=== PATIENT | female | born 1960 | race Caucasian/White ===

== ENCOUNTER → 2019-08-24 | Outpatient (BNVA) | payer BC, SELFPAY | PROVIDERS: Family Provider Family Medicine; Visit Provider Nurse Practitioner Family | DX: M79.672 Pain in left foot (principal) | CPT/HCPCS: 73630 ==

== ENCOUNTER 2020-02-19 09:31 | Outpatient (CLI) | payer BC, SELFPAY ==
--- NOTE | 2020-02-19 09:30 | MM_ITS ---
WS: [id number] SCREENING DIGITAL MAMMOGRAM WITH CAD HISTORY: screening COMPARISON: 09/12/2018, 08/01/2017 and 06/07/2016 Bilateral CC and MLO views submitted. Computer aided detection analyzed. Breast composition: There are scattered areas of fibroglandular density. No suspicious masses, microc alcifications or architectural distortion. MM/[place] [id number] IMPRESSION: BI-RADS: 1-Negative FOLLOW UP: 1 Year Follow-up
== END 2020-02-19 09:32 | disposition home or self-care (01) ==
LOC: RADSHAW 09:31
PROVIDERS: PCP Nurse Practitioner Family; Visit Provider Nurse Practitioner Family
DX: Z12.31 Encounter for screening mammogram for malignant neoplasm of breast (principal)
CPT/HCPCS: 77067

== ENCOUNTER 2020-11-03 10:47 | Outpatient (CLI) | payer BC, SELFPAY ==
--- NOTE | 2020-11-03 11:00 | USCV_ITS ---
Mandy Marc Age: 60 Gender: F : 1960 Exam Date: 11/03/2020 11:05 Ordering Phys: Marci Jackson NP Technologist: Manju Horta [place]am [place] [facility] [place]: PAIN IN RT LEG AROUND POP FOSSA HISTORY: Pt hurt leg in Mar 2020. Still having pain. PROCEDURES: Venous duplex imaging was performed in only the right lower extremity. The following venous structures were evaluated: common femoral vein, profunda vein, proximal portion of the greater saphenous vein, superficial femoral vein, and the popliteal vein. In addition, the posterior tibial and peroneal trunk were evaluated. Serial compression, augmentation maneuvers, and spectral Doppler flow evaluation were performed. FINDINGS: No DVT seen in any vessel examined. There is a Miller's cyst with debris present. CONCLUSIONS No evidence of right lower extremity DVT. Popliteal cyst measuring 2.8 x 0,9cm with internal debris Misha Lundberg MD (Electronically Signed) Final Date: 03 Nov 2020 18:06 S
== END 2020-11-03 10:48 | disposition home or self-care (01) ==
LOC: RAD 10:50
PROVIDERS: PCP Nurse Practitioner Family; Visit Provider Nurse Practitioner Family
DX: M79.89 Other specified soft tissue disorders (principal); M79.604 Pain in right leg; M71.21 Synovial cyst of popliteal space [Baker], right knee
CPT/HCPCS: 93971

== ENCOUNTER → 2020-11-21 13:40 | Outpatient (BNVA) | payer BC, SELFPAY | PROVIDERS: PCP Nurse Practitioner Family; Referring Provider Nurse Practitioner Family; Visit Provider Orthopaedic Surgery | DX: M71.20 Synovial cyst of popliteal space [Baker], unspecified knee (principal); M25.561 Pain in right knee | CPT/HCPCS: 73560; 73565 ==

== ENCOUNTER 2021-10-06 15:21 | Outpatient (CLI) | payer BC, SELFPAY ==
--- NOTE | 2021-10-06 15:35 | MM_ITS ---
WS: [id number] BILATERAL SCREENING 3D TOMOSYNTHESIS DIGITAL MAMMOGRAM WITH CAD HISTORY: SCREENING COMPARISON: 02/19/2020 and 09/12/2018 Bilateral CC and MLO views submitted. Computer aided detection analyzed. Breast composition: There are scattered areas of fibroglandular density. No suspicious masses, microc alcifications or architectural distortion. MM/[id number] IMPRESSION: BI-RADS: 1-Negative FOLLOW UP: 1 Year Follow-up
== END 2021-10-06 15:22 | disposition home or self-care (01) ==
LOC: RADSHAW 15:28
PROVIDERS: PCP Nurse Practitioner Family; Visit Provider Nurse Practitioner Family
DX: Z12.31 Encounter for screening mammogram for malignant neoplasm of breast (principal)
CPT/HCPCS: 77063; 77067

== ENCOUNTER → 2022-05-23 09:19 | Outpatient (BNVA) | payer BC, SELFPAY | PROVIDERS: PCP Nurse Practitioner Family; Visit Provider Nurse Practitioner Family | DX: Z00.00 Encounter for general adult medical examination without abnormal findings (principal); Z13.6 Encounter for screening for cardiovascular disorders; Z68.26 Body mass index [BMI] 26.0-26.9, adult; Z72.0 Tobacco use | CPT/HCPCS: 80053; 80061; 84443; 85025 ==

== ENCOUNTER 2022-06-20 09:32 | Outpatient (CLI) | payer BC, SELFPAY ==
--- NOTE | 2022-06-20 09:45 | CT_ITS ---
WS: [id number] LDCT LUNG CANCER SCREENING HISTORY: Z72.0 - Tobacco use TECHNIQUE: Axial imaging performed from the apices to 1 cm below the costophrenic angles. Coronal and sagittal reformats are submitted with axial MIP series. All CT scans at [facility] use at least one of these dose optimization techniques: automated exposure control; mA and/or kV adjustment per patient size (includes targeted exams where dose is matched to clinical indication); or iterativ e reconstruction. DLP: 73.62 mGy.cm DIvol: Mean CTDIvol: 1.60 (mGy) COMPARISON: None available. Diagnostic quality: Satisfactory Lung Nodules: Multiple pulmonary nodules. The largest nodule LEFT lower lobe contains a central calci fication. This nodule measures 11 mm. There are additional bilateral lower lobe pulmonary nodules whi ch are smaller in size. Mild biapical pleural thickening and scarring. Endobronchial nodule distal LE FT main bronchus measures 2.5 mm. Lungs: Chronic emphysema with centrilobular changes in the upper lung lane. Heart: Normal size heart. No effusion. Other findings: Mild atherosclerosis aorta. Mildly prominent thyroid. No adenopathy. No adrenal mass. CT/CT lung screening [id number] IMPRESSION: LUNG-RADS: 4A-Probably Suspicious FOLLOW UP: 3 Month LDCT OTHER FINDINGS (S MODIFIER): None. 3 month low-dose CT follow-up is to reevaluate the endobronchial nodule in the distal LEFT mainstem bronchus and the pulmonary nodules.
== END 2022-06-20 09:33 | disposition home or self-care (01) ==
LOC: RAD 09:32
PROVIDERS: PCP Nurse Practitioner Family; Visit Provider Nurse Practitioner Family
DX: Z12.2 Encounter for screening for malignant neoplasm of respiratory organs (principal); Z72.0 Tobacco use
CPT/HCPCS: 71271

== ENCOUNTER 2022-10-09 13:27 | Outpatient (CLI) | payer BC, SELFPAY ==
--- NOTE | 2022-10-09 13:30 | CT_ITS ---
WS: [email or web address] CT chest w con* [id number] HISTORY: Z72.0 - Tobacco use TECHNIQUE: Axial imaging performed through the thorax. Coronal and sagittal reformats are submitted. All CT scans at [facility] use at least one of these dose optimization techniques: automated exposure control; mA and/or kV adjustment per patient size (includes targeted exams where dose is mat ched to clinical indication); or iterative reconstruction. CONTRAST: Omnipaque 350; 100 mL IV. DLP: 189.68 mGy.cm COMPARISON: 06/20/2022 Lungs and central airway: Chronic emphysema. Single 4 mm nodule along the fissure. No change. Largest nodule LEFT lung is 10 mm with a central calcification in the LEFT lower lobe. There are additional smaller nodules in the LEFT lower lobe which have not changed in size since 06/20/2022. There are at least 3 additional nodules besides the main LEFT lower lobe nodule. The very small endobronchial lesi on in the proximal LEFT mainstem bronchus along the superior wall is stable. Pleura: Normal. No pleural effusion. Heart and pericardium: Normal size heart with no pericardial effusion. Mediastinum and luis eduardo: No mediastinum or hilar adenopathy. Vessels: Mild atherosclerosis aorta. No aneurysm. Normal size pulmonary artery. Normal size pulmonary artery. Chest wall and lower neck: Bilateral thyroid nodules. The largest LEFT lower lobe is 12 mm. Upper abdomen: Small hiatal hernia. No adrenal mass. Osseous structures: No destructive process. CT/CT chest w con* [id number] IMPRESSION: 1. No interval change in the bilateral pulmonary nodules in the LEFT mainstem endobronchial lesion since 06/20/2022. Recommend follow-up chest CT in 6 months with IV contrast. 2. No adenopathy. 3. Bilateral thyroid nodules. Largest 12 mm LEFT lower lobe.
[2022-10-09 13:53] LABS: Blood Urea Nitrogen 11 mg/dL (8-23)
[2022-10-09 13:54] LABS: Glomerular Filtration Rate 72.2 mL/min (90-130)
[2022-10-09] MEDS: iohexol 350 mg/mL 500 mL Btl (per mL) IV (13:59)
== END 2022-10-09 13:28 | disposition home or self-care (01) ==
PROVIDERS: Radiology Diagnostic Radiology; PCP Nurse Practitioner Family; Visit Provider Nurse Practitioner Family
DX: R91.1 Solitary pulmonary nodule (principal); R91.8 Other nonspecific abnormal finding of lung field; Z72.0 Tobacco use
CPT/HCPCS: 71260; 82565; 84520; Q9967

== ENCOUNTER → 2023-05-13 16:40 | Outpatient (BNVA) | payer BC, MEDICARE, SELFPAY | PROVIDERS: PCP Nurse Practitioner Family; Visit Provider Nurse Practitioner Family | DX: E04.1 Nontoxic single thyroid nodule (principal); R91.1 Solitary pulmonary nodule | CPT/HCPCS: 80053; 84439; 84443; 84480 ==

== ENCOUNTER 2023-05-27 12:49 | Outpatient (CLI) | payer BC, MEDICARE, SELFPAY ==
--- NOTE | 2023-05-27 13:01 | CT_ITS ---
WS: [email or web address] CT chest w con* [id number] HISTORY: R91.8 - Other nonspecific abnormal finding of lung field TECHNIQUE: Axial imaging performed through the thorax. Coronal and sagittal reformats are submitted. All CT scans at [facility] use at least one of these dose optimization techniques: automated exposure control; mA and/or kV adjustment per patient size (includes targeted exams where dose is mat ched to clinical indication); or iterative reconstruction. CONTRAST: Omnipaque 350; 100 mL IV. DLP: 256.63 mGy.cm COMPARISON: 10/09/2022, 06/20/2022 Lungs and central airway: Hyperinflated lungs with centrilobular emphysema. Stable bilateral pulmonar y nodules ranging in size from 2mm to 11 mm. The largest nodule in the superior segment LEFT lower lo be. There are several bilateral and predominantly lower lobe pulmonary nodules which are all stable. The previously described small nodule in the LEFT mainstem bronchus is not definitely appreciated on today's examination. Pleura: Normal. No pleural effusion. Heart and pericardium: Normal size heart with no pericardial effusion. Mediastinum and luis eduardo: 9 mm LEFT hilar lymph node has slightly increased in size. Vessels: Mild atherosclerosis aorta. No aneurysm. Normal sized pulmonary artery. Chest wall and lower neck: Bilateral thyroid nodules. Largest nodule 12 mm inferior pole LEFT thyroid . Upper abdomen: Stomach is moderately distended with food products. There is very slight mucosal promi nence which is similar to the prior exam. Gallbladder is negative. No adrenal mass. Visualized liver is negative. Osseous structures: No destructive process. IMPRESSION: 1. Multiple bilateral pulmonary nodules are similar to 06/20/2022 with no increase in size or number. As patient does have a history of melanoma recommend continued surveillance. Follow-up chest CT in 6 months. Nodule should be followed for a total of 2 years to document continued stability. 2. Slight increase in size of a LEFT hilar lymph node but still less than 1 cm in diameter. 3. Chronic emphysema. 4. Bilateral thyroid nodules.
[2023-05-27] MEDS: iohexol 350 mg/mL 500 mL Btl (per mL) IV (13:18)
== END 2023-05-27 12:50 | disposition home or self-care (01) ==
LOC: RAD 12:49
PROVIDERS: PCP Nurse Practitioner Family; Visit Provider Nurse Practitioner Family
DX: R91.8 Other nonspecific abnormal finding of lung field (principal); R91.1 Solitary pulmonary nodule; Z85.820 Personal history of malignant melanoma of skin; J43.9 Emphysema, unspecified; E04.1 Nontoxic single thyroid nodule
CPT/HCPCS: 71260; Q9967

== ENCOUNTER → 2023-11-04 09:00 | Outpatient (BNVA) | payer MEDICARE, SELFPAY | PROVIDERS: PCP Nurse Practitioner Family; Visit Provider Nurse Practitioner Family | DX: R91.8 Other nonspecific abnormal finding of lung field (principal); Z13.6 Encounter for screening for cardiovascular disorders; E04.1 Nontoxic single thyroid nodule; R03.0 Elevated blood-pressure reading, without diagnosis of hypertension | CPT/HCPCS: 80053; 80061; 84443 ==

== ENCOUNTER 2023-12-19 11:00 | Outpatient (CLI) | payer MEDICARE, SELFPAY ==
--- NOTE | 2023-12-19 11:00 | CTR_ITS ---
PROCEDURE INFORMATION: Exam: CT Chest With Contrast; Diagnostic Exam date and time: 12/19/2023 11:17 AM Age: 63 years old Clinical indication: Abnormal findings; Abnormal radiologic exam of lung or chest; Patient HX: Follow up bilat lung nodules, HX of shingles on right side abdomen into back x 3 weeks; Additional info: R91.8 - other nonspecific abnormal finding of lung field TECHNIQUE: Imaging protocol: Diagnostic computed tomography of the chest with contrast. Radiation optimization: All CT scans at this facility use at least one of these dose optimization techniques: automated exposure control; mA and/or kV adjustment per patient size (includes targeted exams where dose is matched to clinical indication); or iterative reconstruction. Contrast material: OMNI 350; Contrast volume: 100 ml; Contrast route: INTRAVENOUS (IV); COMPARISON: CT chest w con* [id number] 05/27/2023 1:12 PM RADIATION DOSE METRICS: Total DLP (mGy-cm): 242.09 FINDINGS: Thyroid: Small 14 mm cyst or nodule in the left thyroid lobe. Consider ultrasound. Lungs: Calcified granuloma at the lateral left mid lung. Stable 10 mm nodule in the lateral left lung base now with a slight surrounding infiltrate. 2 additional left lower lobe pulmonary nodules as well as a right lower lobe pulmonary nodule are all stable. Pleural spaces: Unremarkable. No pneumothorax. No pleural effusion. Heart: Unremarkable. No cardiomegaly. No pericardial effusion. Lymph nodes: Unremarkable. No enlarged lymph nodes. Vasculature: Unremarkable. No aortic aneurysm. Liver: Hepatic steatosis. Bones/joints: Unremarkable. No acute fracture. Soft tissues: Unremarkable. CT/CT chest w con* [id number] IMPRESSION: The bilateral pulmonary nodules are stable although the largest on the left now has a mild surrounding infiltrate or atelectasis. COMMENTS: Consistent with the [employer] [place] [employer]'s Incidental Findings Committee white paper (J Am [employer]iol 2015): In patients aged 35 years and older with an incidental thyroid nodule equal to or greater than 1.[address], MRI or extrathyroidal US, further evaluation with dedicated thyroid US is recommended for patients with normal life expectancy and without comorbidities. For smaller nodules without suspicious features, no further evaluation or follow up is recommended.
[2023-12-19] MEDS: iohexol 350 mg/mL 500 mL Btl (per mL) IV (11:22)
== END 2023-12-19 11:01 | disposition home or self-care (01) ==
PROVIDERS: PCP Nurse Practitioner Family; Visit Provider Nurse Practitioner Family
DX: R91.8 Other nonspecific abnormal finding of lung field (principal)
CPT/HCPCS: 71260; Q9967

== ENCOUNTER → 2024-03-23 08:50 | Outpatient (BNVA) | payer MEDICARE, SELFPAY | PROVIDERS: PCP Nurse Practitioner Family; Visit Provider Family Medicine | DX: R30.0 Dysuria (principal) | CPT/HCPCS: 81003; 87086 ==

== ENCOUNTER → 2024-05-08 14:07 | Outpatient (BNVA) | payer MEDICARE, SELFPAY | PROVIDERS: PCP Nurse Practitioner Family; Visit Provider Nurse Practitioner Family | DX: R10.9 Unspecified abdominal pain (principal) | CPT/HCPCS: 81000 ==

== ENCOUNTER 2024-06-15 12:21 | Outpatient (CLI) | payer MEDICARE, SELFPAY ==
--- NOTE | 2024-06-15 12:30 | CT_ITS ---
WS: [email or web address] CT chest w con* [id number] HISTORY: R91.8 - Other nonspecific abnormal finding of lung field TECHNIQUE: Axial imaging performed through the thorax. Coronal and sagittal reformats are submitted. All CT scans at [facility] use at least one of these dose optimization techniques: automated exposure control; mA and/or kV adjustment per patient size (includes targeted exams where dose is mat ched to clinical indication); or iterative reconstruction. CONTRAST: Omnipaque 350; 100 mL IV. DLP: 231.72 mGy.cm COMPARISON: 12/19/2023, 06/20/2022 Lungs and central airway: Lungs are hyperexpanded. Centrilobular emphysema. Several pulmonary nodules are identified in the LEFT lower lobe. The largest nodule contains a central calcification. Nodule m easures 11 x 14 mm with very minimal change in size since the prior study. There are a few additional nodules which are subcentimeter at the LEFT lung base. Stable 7 mm nodule RIGHT lung base. 3 mm nodu le RIGHT middle lobe. Pleura: Normal. No pleural effusion. Heart and pericardium: Mild cardiomegaly. Mediastinum and luis eduardo: 9 mm LEFT hilar lymph node. No mediastinal or hilar adenopathy. Vessels: Mild atherosclerosis aorta. Normal size pulmonary artery. Chest wall and lower neck: Bilateral thyroid nodules. LEFT thyroid nodule 11 mm. Upper abdomen: Small hiatal hernia. Osseous structures: No destructive process. CT/CT chest w con* [id number] IMPRESSION: 1. Stable pulmonary nodules. No significant increase in size of these nodules since 05/27/2023. Largest nodule 11 x 14 mm with a central calcification LEFT l ower lobe. 2. No mediastinal or hilar adenopathy. 3. Centrilobular emphysema. 4. Bilateral thyroid nodules.
[2024-06-15 12:53] LABS: Blood Urea Nitrogen 8 mg/dL (8-23)
[2024-06-15] MEDS: iohexol 350 mg/mL 500 mL Btl (per mL) IV (12:58)
== END 2024-06-15 12:22 | disposition home or self-care (01) ==
LOC: RAD 12:23
PROVIDERS: PCP Nurse Practitioner Family; Visit Provider Nurse Practitioner Family
DX: R91.8 Other nonspecific abnormal finding of lung field (principal); J43.2 Centrilobular emphysema; E04.2 Nontoxic multinodular goiter; I51.7 Cardiomegaly; K44.9 Diaphragmatic hernia without obstruction or gangrene
CPT/HCPCS: 71260; 82565; 84520

== ENCOUNTER 2024-12-29 05:00 | Outpatient (RCR) | payer MEDICARE, SELFPAY | END 2025-01-28 23:59 | disposition home or self-care (01) | LOC: GPT 05:00 | PROVIDERS: PCP Nurse Practitioner Family; Visit Provider Family Medicine | DX: M25.512 Pain in left shoulder (principal) | CPT/HCPCS: 97110; 97140; 97161 ==

== ENCOUNTER → 2025-01-14 09:46 | Outpatient (BNVA) | payer MEDICARE, SELFPAY | PROVIDERS: PCP Nurse Practitioner Family; Visit Provider Family Medicine | DX: M25.519 Pain in unspecified shoulder (principal) | CPT/HCPCS: 73030 ==

== ENCOUNTER 2025-01-29 05:00 | Outpatient (RCR) | payer MEDICARE, SELFPAY | END 2025-02-28 23:59 | disposition home or self-care (01) | LOC: GPT 05:00 | PROVIDERS: PCP Nurse Practitioner Family; Visit Provider Family Medicine | DX: M25.512 Pain in left shoulder (principal) | CPT/HCPCS: 97110; 97112; 97140 ==

== ENCOUNTER 2025-02-17 11:16 | Outpatient (CLI) | payer MEDICARE, SELFPAY ==
--- NOTE | 2025-02-17 11:20 | MM_ITS ---
WS: [email or web address] BILATERAL 3D TOMOSYNTHESIS DIGITAL SCREENING MAMMOGRAPHY WITH CAD CLINICAL INFORMATION: SCREENING HISTORY: Screening mammogram. No current complaints. COMPARISON: None. TECHNIQUE: Bilateral CC and MLO views. FINDINGS: Scattered fibroglandular densities bilaterally. No suspicious focal mass, asymmetry, calcifications, or architectural distortion. No evidence of malignancy. A few incidental punctate calcifications. MM/MM scr tomosynthesis [id number] IMPRESSION: DENSITY: There are scattered areas of fibroglandular density. BI-RADS: 2 - Benign. FOLLOW UP: 1 Year Follow-up Recommend return to annual screening mammography.
== END 2025-02-17 11:17 | disposition home or self-care (01) ==
LOC: MOBLMAM 11:22
PROVIDERS: PCP Nurse Practitioner Family; Visit Provider Nurse Practitioner Family
DX: Z12.31 Encounter for screening mammogram for malignant neoplasm of breast (principal); R92.323 Mammographic fibroglandular density, bilateral breasts; R92.1 Mammographic calcification found on diagnostic imaging of breast
CPT/HCPCS: 77063; 77067

== ENCOUNTER 2025-03-01 05:00 | Outpatient (RCR) | payer MEDICARE, SELFPAY | END 2025-03-30 23:59 | disposition home or self-care (01) | LOC: GPT 05:00 | PROVIDERS: PCP Nurse Practitioner Family; Visit Provider Family Medicine | DX: M75.112 Incomplete rotator cuff tear or rupture of left shoulder, not specified as traumatic (principal); M25.512 Pain in left shoulder | CPT/HCPCS: 97110; 97140; 97164 ==

== ENCOUNTER → 2025-03-05 08:30 | Outpatient (BNVA) | payer MEDICARE, SELFPAY | PROVIDERS: PCP Nurse Practitioner Family; Visit Provider Nurse Practitioner Family | DX: E53.8 Deficiency of other specified B group vitamins (principal); Z13.6 Encounter for screening for cardiovascular disorders; R03.0 Elevated blood-pressure reading, without diagnosis of hypertension | CPT/HCPCS: 80053; 80061; 82607; 85025 ==

== ENCOUNTER 2025-04-05 10:46 | Outpatient (CLI) | payer MEDICARE, SELFPAY ==
--- NOTE | 2025-04-05 10:55 | MR_ITS ---
WS: [email or web address] MRI LEFT SHOULDER HISTORY: PAIN IN LEFT SHOULDER COMPARISON: Radiograph 01/14/2025 TECHNIQUE: Multiplanar sequences of the shoulder joint are submitted. Moderate AC joint arthritis. Small erosions from the distal clavicle and the acromion. AC joint is narrowed with mild synovitis. Small amount of fluid in the subacromial and subdeltoid bursa. Moderate subacromial impingement upon the supraspinatus muscle and tendon. Enthesopathy from the distal undersurface of the acromion. No os acromion. Biceps tendon is abnormal. There is a large amount of fluid in the biceps tendon sheath. Abnormal size, configuration and signal in the biceps tendon in the bicipital groove. The tendon is thickened and heterogeneous. High-grade partial tear is expected. Abnormal signal is greatest as the biceps tendon passes over the lesser tuberosity where there is an osteophyte. There is marked increased T2 signal and increase in size of the biceps tendon. Mild narrowing of the glenohumeral joint. No acute fracture. Moderate size joint effusion with intra-articular bodies. Fluid extends into the axillary pouch. No rotator cuff muscle atrophy or edema. Increased signal and thickening of the distal supraspinatus tendon from marked tendinopathy. Within the area of tendinopathy there is increased oblique signal extending to the bursal surface highly suspicious for a tear. No tendon retraction. Tendinopathy in the distal subscapularis tendon. On one image only, image 14 of series 10, the biceps tendon appears dislocated medial to the subscapularis tendon. Normal infraspinatus tendon. No labral tear identified. MR/MR shoulder LT wo con* [id number] IMPRESSION: 1. Severe tendinopathy in the distal supraspinatus tendon. Superimposed partia l oblique tear in the supraspinatus tendon at the level of the subacromial impi ngement. 2. Moderate subacromial impingement. 3. Moderate AC joint arthritis. 4. Abnormal biceps tendon. Thickened biceps tendon with increased fluid in the tendon sheath. Tears of the biceps tendon in the bicipital groove. On one imag e the biceps tendon appears to be medially displaced with respect to the subsca pularis tendon suggesting a biceps tendon tear with dislocation. 5. Moderate size joint effusion with a few intra-articular bodies. 6. Tendinopathy distal subscapularis tendon.
== END 2025-04-05 10:47 | disposition home or self-care (01) ==
LOC: RAD 10:50
PROVIDERS: PCP Nurse Practitioner Family; Visit Provider Family Medicine
DX: M19.012 Primary osteoarthritis, left shoulder (principal); M65.912 Unspecified synovitis and tenosynovitis, left shoulder; M75.92 Shoulder lesion, unspecified, left shoulder; M25.712 Osteophyte, left shoulder
CPT/HCPCS: 73221

== ENCOUNTER → 2025-04-12 04:15 | Outpatient (BNVA) | payer MEDICARE, SELFPAY | PROVIDERS: PCP Nurse Practitioner Family; Visit Provider Nurse Practitioner Family | DX: R19.7 Diarrhea, unspecified (principal); K92.1 Melena | CPT/HCPCS: 80053; 85025; 87045; 87177; 87209; 87427; 87449; 87493 ==